=== PATIENT | male | born 1970 | race Caucasian/White ===

== ENCOUNTER 2019-01-09 21:13 | Emergency (ER) | payer MEDICAID, OTHER ==
[~2019-01-09] VITALS: Wt 132.1 kg
[2019-01-09 21:42] VITALS: BP 146/72; PULSE 91; RESP 18
--- NOTE | 2019-01-10 02:18 | ERD ---
ER Documentation Chief Complaint Chief Complaint L FOOT NUMB X'S 4 DAYS HPI This is a 48-year-old male who presents to emerge department with complaints of left foot throbbing for about 4 days. Stated that he has been walking a lot. Patient also complains of bilateral knee pain. Denies any trauma. Denies Denies headache, head injury, loss of consciousness, dizziness, neck pain, neck stiffness, throat pain, difficulty swallowing, difficulty breathing lying flat, shoulder pain, chest pain, back pain, abdominal pain, nausea, vomiting, constipation, diarrhea, urinary symptoms, loss of bowel and bladder control, trauma, injury, falls, difficulty walking due to pain, numbness or tingling sensation, calf pain, recent travel, recent major surgery in the last 3 weeks, calf pain, recent long travel, recent exposure to any illness, recent antibiotic use in the last 3 months, fever, chills, seizures. Past medical history: Surgical history: Social: Denies smoking, use of alcoholic beverages, use of illegal drugs. ROS All systems reviewed and are negative except as per history of present illness. Medications Home Meds Active Scripts Gabapentin* (Gabapentin*) 100 Mg Capsule, 100 MG PO TID PRN for PAIN LEVEL 1-5, #60 CAP Prov:DOUGILABAN,DEIDREAR F 01/10/19 Omeprazole* (Omeprazole*) 40 Mg Capsule.dr, 40 MG PO DAILY, #30 CAP Prov:PASILABAN,DEIDREAR F 01/10/19 Naproxen* (Naprosyn*) 500 Mg Tablet, 500 MG PO BID PRN for PAIN AND/OR INFLAMMATION, #30 TAB Prov:PASILABANDEIDREAR F 01/10/19 Allergies Allergies: Coded Allergies: No Known Allergy (Unverified , 01/09/19) PMhx/Soc Hx Miscellaneous Medical Probl: Yes (obesity) Hx Alcohol Use: Yes Hx Substance Use: No Hx Tobacco Use: Yes Smoking Status: Current every day smoker Physical Exam Vitals Physical Exam Const: No acute distress Head: Atraumatic Eyes: Normal Conjunctiva ENT: Normal External Ears, Nose and Mouth. Neck: Full range of motion. No meningismus. Resp: Clear to auscultation bilaterally Cardio: Regular rate and rhythm, no murmurs Abd: Soft, non tender, non distended. Normal bowel sounds Skin: No petechiae or rashes Back: No midline or flank tenderness Ext: No cyanosis, or edema. Left foot: Distal area of the left big toe has a swelling mild redness without obvious deformity. Good and full range of motion of the left big toe. No suspicion for tendon injury. No suspicion for septic joint. Left pedal pulses within normal limits. Left ankle is unremarkable. Bilateral knees has no deformity and it skin is not warm to touch and has good and full range of motion. Very low suspicion of septic joint of bilateral knees. No calf tenderness bilaterally. Bilateral hips are stable and unremar kable. Right lower extremity is unremarkable. No neurovascular deficit. Ambulatory with steady gait. Neur: Awake and alert. No facial droop. Follows commands. Equal customer care associate. Equal strength in bilateral upper and lower extremities. Romberg test is neg ative. No neurological deficit. Psych: Normal Mood and Affect Results 24 hrs Current Medications Medications Dose Sig/Marcy Start Time Status Last (Trade) Ordered Route PRN Stop Time Admin Dose Reason Admin Morphine 4 mg ONCE STAT 01/10/19 DC Sulfate IM 02:21 (morphine) 01/10/19 02:45 10 mg ONCE ONCE 01/10/19 DC 01/10/19 Dexamethasone IM 02:30 02:37 (Decadron) 01/10/19 02:31 Colchicine 1.2 mg ONCE ONCE 01/10/19 DC 01/10/19 (Colchicine) PO 02:30 02:37 01/10/19 02:31 Colchicine 0.6 mg ONCE ONCE 01/10/19 DC 01/10/19 (Colchicine) PO 02:30 02:54 01/10/19 02:31 1 tab ONCE ONCE 01/10/19 DC 01/10/19 Acetaminophen PO 03:00 02:54 / 01/10/19 03:00 Hydrocodone Bitart ([place] (10/325)) Procedures/MDM I offered diagnostic tests but patient strongly refused. Diagnostic tests: Clinical exam. Treatment: Colchicine. Dexamethasone. Morphine. Re-evaluation: Denies pain. No neurovascular deficits. Sensation is intact bilaterally to upper and lower extremities. Romberg test is negative. No neurological deficits. Ambulatory with steady gait. Differential diagnosis I have low suspicion for septic joint., Lisfranc, fracture, displaced fracture, compartment syndrome. Final diagnosis: Gout. Prescription: Motrin. Omeprazole. Follow-up with PCP in the next 24-48 hours. Please stop drinking alcoholic beverages. Patient instructed to have a healthy diet including weight loss. Come back here in the emergency department for any new symptoms or any worsening symptoms. All questions and concerns were answered. Patient and family members verbalized understanding and agreed with plan of care. Hemodynamically stable on discharge. Departure Diagnosis: Primary Impression: Gout attack Additional Impression: Gout Condition: Stable Additional Instructions: Follow-up with PCP in the next 24-48 hours. Please stop drinking alcoholic beverages. Patient instructed to have a healthy diet including weight loss. Come back here in the emergency department for any new symptoms or any worsening symptoms. BOB REYNA Jan 10, 2019 02:18
[2019-01-10] MEDS ORDERED: OMEP40CA6 PO (02:20)
[2019-01-10] MEDS ORDERED: NAPR-985 PO (02:20)
[2019-01-10] MEDS ORDERED: GABA100C14 PO (02:21)
[2019-01-10] MEDS ORDERED: morphine 4 MG/ML VIAL IM STA (02:21)
[2019-01-10] MEDS ORDERED: COLCHICINE 0.6 MG TAB PO ONE ×2 (02:30)
[2019-01-10] MEDS ORDERED: DEXAMETHASONE 10 MG/ML 1 ML INJ IM ONE (02:30)
[2019-01-10] MEDS ORDERED: HYDROCODONE/APAP (10/325) TAB PO ONE (03:00)
== END 2019-01-10 02:59 | disposition home or self-care (01) ==
LOC: FTE 21:13
DX: M10.9 Gout, unspecified (principal); F17.210 Nicotine dependence, cigarettes, uncomplicated; E66.9 Obesity, unspecified
CPT/HCPCS: 96372; J1100; Z7502; Z7610; J2270